=== PATIENT | male | born 1955 | race Caucasian/White ===

== ENCOUNTER 2016-09-15 08:48 | Outpatient (CLI) | payer OTHER ==
--- NOTE | 2016-09-15 10:18 | DIAGNOSTIC IMAGING REPORT ---
PROCEDURE: US BILATERAL CAROTID DOPPLER INDICATION: PALPITATIONS TECHNIQUE: Color Doppler duplex imaging of the carotid and vertebral vessels. COMPARISON: None. FINDINGS: Right carotid system: No significant stenosis visualized. The waveforms are normal. Mild plaque in the common carotid artery Left carotid system: No significant stenosis visualized. The waveforms are normal. Mild plaque in the common carotid artery. Vertebral System: Antegrade vertebral artery flow bilaterally. Right common carotid artery peak systolic velocity 107 cm/second. Right internal carotid artery peak systolic velocity 79 cm/second. Right external carotid artery peak systolic velocity 93 cm/second. Right wpitrzeo-oz-juvcle carotid artery ratio 0.73 Right vertebral artery peak systolic velocity 44 cm/second. Left common carotid artery peak systolic velocity 92 cm/second. Left internal carotid artery peak systolic velocity 95 cm/second. Left external carotid artery peak systolic velocity 103 cm/second. Left hcwlkozh-zj-jkkmky carotid artery ratio 1.0 Left vertebral artery peak systolic velocity 67 cm/second. IMPRESSION: 1. No hemodynamically significant stenosis in either carotid system. 2. Antegrade vertebral artery flow bilaterally. Velocity criteria are extrapolated from diameter data as defined by the Society of Radiologists in Ultrasound Consensus Conference, Radiology 2003; 229; 340-346.
--- NOTE | 2016-09-15 10:18 | DIAGNOSTIC IMAGING REPORT ---
PROCEDURE: US BILATERAL CAROTID DOPPLER INDICATION: PALPITATIONS TECHNIQUE: Color Doppler duplex imaging of the carotid and vertebral vessels. COMPARISON: None. FINDINGS: Right carotid system: No significant stenosis visualized. The waveforms are normal. Mild plaque in the common carotid artery Left carotid system: No significant stenosis visualized. The waveforms are normal. Mild plaque in the common carotid artery. Vertebral System: Antegrade vertebral artery flow bilaterally. Right common carotid artery peak systolic velocity 107 cm/second. Right internal carotid artery peak systolic velocity 79 cm/second. Right external carotid artery peak systolic velocity 93 cm/second. Right scbzbyeg-cu-czqtbi carotid artery ratio 0.73 Right vertebral artery peak systolic velocity 44 cm/second. Left common carotid artery peak systolic velocity 92 cm/second. Left internal carotid artery peak systolic velocity 95 cm/second. Left external carotid artery peak systolic velocity 103 cm/second. Left cmntzphk-ab-ekwisc carotid artery ratio 1.0 Left vertebral artery peak systolic velocity 67 cm/second. IMPRESSION: 1. No hemodynamically significant stenosis in either carotid system. 2. Antegrade vertebral artery flow bilaterally. Velocity criteria are extrapolated from diameter data as defined by the Society of Radiologists in Ultrasound Consensus Conference, Radiology 2003; 229; 340-346.
--- NOTE | 2016-09-16 16:57 | DIAGNOSTIC IMAGING REPORT ---
REFERRING PHYSICIAN/PROVIDER: Erna Cueva MD CONSULTING OFFICE ASSISTANT RECEPTIONIST: Tj Freire Jr. MD PROCEDURE: M-mode 2D echocardiography with spectral and color flow Doppler TECHNICAL QUALITY: The study quality was technically adequate. INDICATION: PALPITATIONS RHYTHM DURING PROCEDURE: The patient was in normal sinus rhythm during the exam. INTERPRETATIONS: Left Ventricle: The left ventricle is normal in size, wall thickness, and systolic function without any focal wall motion abnormalities. There is no ventricular septal defect visualized. The ejection fraction is estimated to be 60-65%. Spectral Doppler of the mitral valve shows a normal E/A wave ratio. Right Ventricle: The right ventricle is normal in size and function. Atria: The left atrium grossly appears normal in size. The right atrium is mildly dilated. A patent foramen ovale is suspected. Mitral Valve: The mitral valve is normal in structure and function. There is no mitral regurgitation noted. Aortic Valve: The aortic valve is trileaflet. The aortic valve opens well. No aortic regurgitation is present. Tricuspid Valve: The tricuspid valve leaflets are thin and pliable. There is a trace or physiologic amount of tricuspid regurgitation. Pulmonary artery pressures cannot be estimated because of the lack of a measurable TR jet velocity. Pulmonic Valve: The pulmonic valve is not well visualized. Great Vessels: The aortic root is normal size. The dimensions of the ascending aorta are normal. The IVC is of normal diameter and collapses greater than 50% with a sniff. This suggests a low right atrial pressure of 3 mm Hg. Pericardium/ Pleura The pericardium appears normal. IMPRESSION: 1. The left ventricular systolic function is normal without focal wall motion abnormalities. The right ventricle is normal in size and function. 2. The left atrium grossly appears normal in size in the right atrium is mildly dilated. There is a suspected patent foramen ovale. 3. There is no evidence of significant valvular abnormalities. 4. The aorta root is normal size.
== END 2016-09-15 23:00 ==
LOC: US SRH 08:48
DX: R00.2 Palpitations (principal)

== ENCOUNTER → 2016-09-17 | Outpatient (CLI) | payer OTHER ==
--- NOTE | 2016-09-17 11:32 | DIAGNOSTIC IMAGING REPORT ---
PROCEDURE: US SOFT TISSUE THYR/NECK/HEAD INDICATION: ELEVATED PARATHYROID HORMONE TECHNIQUE: Membreno scale and color Doppler sonographic images of the thyroid gland and surrounding tissues were obtained. COMPARISON: None. FINDINGS: The right thyroid lobe measures 4.6 x 1.5 x 1.2 cm. The left thyroid lobe measures 4.2 x 1.8 x 1.4 cm. The isthmus measures 3 mm in thickness. The echotexture of the gland is homogeneous. There are no dominant solid nodules or cysts. No suspicious calcification. Color Doppler imaging demonstrates homogeneous vascularity throughout the gland. Parathyroid glands are not visible by ultrasound. No suspicious parathyroid masses were visible. No significant adenopathy adjacent to the gland. IMPRESSION: 1. Normal thyroid gland. 2. No enlarged parathyroid glands visible in the expected anatomic positions. An ectopic parathyroid gland (substernal) is not excluded. Further imaging with nuclear medicine scan could be considered.
== END ==
LOC: US SRH 09:48
DX: R79.89 Other specified abnormal findings of blood chemistry (principal)